=== PATIENT | male | born 1960 | race Caucasian/White ===

== ENCOUNTER 2022-04-07 17:20 | Emergency (ER) | payer OTHER ==
[~2022-04-07] VITALS: Ht 162.6 cm; Wt 68.0 kg
[2022-04-07 17:30] VITALS: BP_SYST 152
--- NOTE | 2022-04-07 18:40 | NUR ---
Patient to ER bed H1 to gown for evaluation. Side rails up.
--- NOTE | 2022-04-07 18:52 | NUR ---
ER DR. BANDA EXAMINING PT
--- NOTE | 2022-04-07 19:38 | NUR ---
Patient given written and verbal discharge instructions and verbalizes understanding. ER MD discussed with patient the results and treatment provided. Patient in stable condition. ID arm band removed. NO Rx given. Patient educated on pain management and to follow up with PMD. Pain Scale 0/10. Opportunity for questions provided and answered. Medication side effect fact sheet provided.
[2022-04-07 19:39] VITALS: BP_SYST 152
== END 2022-04-07 19:39 ==
LOC: SED 17:20
DX: Z02.89 Encounter for other administrative examinations (principal); F15.129 Other stimulant abuse with intoxication, unspecified; Z79.899 Other long term (current) drug therapy
CPT/HCPCS: 99283